=== PATIENT | female | born 1985 | race African-American/Black ===

== ENCOUNTER 2017-02-27 18:04 | Observation (INO) | payer OTHER ==
[2017-02-27 18:53] LABS: #Basophils 0.1 thou/uL (0.0-0.2); #Eosinphils 0.1 thou/uL (0.0-0.7); #Lymphocytes 2.6 thou/uL (1.20-3.40); #Monocytes 0.6 thou/uL (0.11-0.59); #Neutrophils 6.7 thou/uL (1.40-6.50); %Basophils 0.7 % (0.0-1.0); %Eosinophils 1.4 % (0.0-10.0); %Monocytes 5.8 % (0.0-10.0); %Neutrophils 66.2 % (42.0-75.0); Hemoglobin 11.4 g/dL (12.0-16.0); Mean Corpuscular HGB CONC 31.1 g/dL (32.0-36.0); Mean Corpuscular Hemoglobin 24.8 pg (27.0-31.0); Mean Corpuscular Volume 79.8 fl (81.0-99.0); Mean Platelet Volume 10.1 fL (7.4-10.4); Platelet Count 208 thou/uL (130-400); RBC Distribution Width 13.5 % (11.5-14.5); White Blood Cell (WBC) Count 10.2 thou/uL (4.8-10.8)
[2017-02-27] MEDS ORDERED: Ondansetron ODT 4 MG TAB ONE (18:57)
[2017-02-27] MEDS ORDERED: Acetaminophen 500 MG TAB ONE (18:57)
[2017-02-27 19:14] LABS: ALT (SGPT) 9 U/L (8-55); AST (SGOT) 12 U/L (5-34); Alkaline Phosphatase 74 U/L (40-150); Anion Gap 9 mmol/L (10-20); BUN (Urea Nitrogen) 10 mg/dL (7.0-18.7); Bilirubin, Total 0.3 mg/dL (0.2-1.2); CK (CPK) 205 U/L (29-168); Calc. Creatinine Clearance 0 mL/min (70-130); Calcium 9.6 mg/dL (7.8-10.44); Carbon Dioxide 28 mmol/L (22-29); Chloride 107 mmol/L (98-107); Estimated GFR-MDRD Greater than 90; Globulin 4.1 g/dL (2.4-3.5); Glucose 87 mg/dL (70-105); Protein, Total 8.1 g/dL (6.0-8.3); Sodium 140 mmol/L (136-145)
[2017-02-27 19:18] LABS: CKMB 1.4 ng/mL (0-6.6); Troponin I 0.015 ng/mL (< 0.028)
--- NOTE | 2017-02-27 19:21 | CT ---
CT BRAIN WITHOUT CONTRAST: History: Headache. Comparison: 2012 FINDINGS: No acute territory infarct of hemorrhage. No midline shift or mass effect. Ventricular size and CSF s paces are normal. Paranasal sinuses and mastoids are clear. IMPRESSION: No acute intracranial abnormality. No significant change. POS: [facility]
[2017-02-27 19:25] LABS: BHCG - Serum Negative (NEGATIVE); Pregs Control Background? CLEAR/WHITE (CLR/WHITE); Pregs Control Bar Appear? YES (CONTROL BAR)
[2017-02-27] MEDS ORDERED: Ibuprofen 600 MG TAB PO PRN (20:29)
[2017-02-27] MEDS ORDERED: Hydrochlorothiazide 25 MG TAB PO SCH (20:30)
[2017-02-27] MEDS ORDERED: Ondansetron HCl/PF 4 MG/2 ML Vial IVP PRN (21:18)
[2017-02-27] MEDS ORDERED: Acetaminophen 325 MG TAB PO PRN (21:18)
[2017-02-27] MEDS ORDERED: Bisacodyl 5 MG TAB PO PRN (21:18)
[2017-02-27] MEDS ORDERED: Ondansetron ODT 4 MG TAB PO PRN (21:18)
[2017-02-27] MEDS ORDERED: Acetaminophen 650 MG Suppository PR PRN (21:18)
[2017-02-27] MEDS ORDERED: cloNIDine 0.1 MG TAB PO PRN (21:18)
[2017-02-27] MEDS ORDERED: Famotidine 20 MG TAB PO SCH (21:30)
[2017-02-27 22:54] VITALS: BMI 53.8
[2017-02-28 01:30] LABS: Troponin I 0.017 ng/mL (< 0.028)
[2017-02-28 05:27] LABS: #Eosinphils 0.1 thou/uL (0.0-0.7); #Monocytes 0.5 thou/uL (0.11-0.59); #Neutrophils 4.9 thou/uL (1.40-6.50); %Basophils 0.6 % (0.0-1.0); %Eosinophils 1.8 % (0.0-10.0); %Monocytes 7.1 % (0.0-10.0); %Neutrophils 64.6 % (42.0-75.0); Hemoglobin 11.2 g/dL (12.0-16.0); Mean Corpuscular HGB CONC 30.9 g/dL (32.0-36.0); Mean Corpuscular Hemoglobin 24.6 pg (27.0-31.0); Mean Corpuscular Volume 79.6 fl (81.0-99.0); Platelet Count 179 thou/uL (130-400); RBC Distribution Width 13.7 % (11.5-14.5); Red Blood Cell (RBC) Count 4.55 mill/uL (4.20-5.40); White Blood Cell (WBC) Count 7.6 thou/uL (4.8-10.8)
[2017-02-28 05:29] LABS: Anion Gap 12 mmol/L (10-20); BUN (Urea Nitrogen) 9 mg/dL (7.0-18.7); Calc. Creatinine Clearance 247 mL/min (70-130); Calcium 9.5 mg/dL (7.8-10.44); Carbon Dioxide 23 mmol/L (22-29); Chloride 103 mmol/L (98-107); Estimated GFR-MDRD Greater than 90; Glucose 125 mg/dL (70-105); Potassium 3.4 mmol/L (3.5-5.1); Sodium 135 mmol/L (136-145)
--- NOTE | 2017-02-28 05:34 | HP ---
PRIMARY CARE PHYSICIAN: Colton Bello M.D. CHIEF COMPLAINT: Syncope. HISTORY OF PRESENT ILLNESS: This is a 31-year-old -[place] female with a known history of se lucrecia hypertension who has not taken her medicines for the last couple of days due to forgetfulness. She has been under stress for the last week as her /boyfriend's old girlfriend recently a nd they had been dealing with the over the last week, but not on any specific worsened stress today and she was driving with her 's and suddenly felt bad, felt warm all over and that is t he last thing she remembers. reports that she started to report feeling bad and then pulled into the wrong way [address] and then pulled over toward a parking lot, but only got detention into the entry before she stopped and parked the car. He got out of the car when around to her side and she open the door, stepped out and then fell to the ground, unconscious. She was only unconscious fo r few seconds. When she woke up, she started shivering all over and it a little bit confused, but on ly for a minute or two and then she was back to her normal state of health. She remembers waking up and feeling very nauseated, no vomiting and having a frontal headache pressure sensation. They givens d EMS, the EMS found that her blood pressure was greater than 200/125. She was given a nitro paste a nd brought into the emergency room. By the time, she was arrived to the emergency room, her blood pr essure was much improved. Original blood pressure 160/92, now down to 140/79. She has received Tyle nol in the emergency room here along with Zofran with some resolution of her nausea and some improvem ent in her headache. PAST MEDICAL HISTORY: 1. Severe hypertension that spikes frequently. 2. Previous unknown liver disease treated by GI at [facility] that resolved over several months with steroid therapy, now it is back to normal. PAST SURGICAL HISTORY: 1. Tubal ligation. 2. Laparoscopic cholecystectomy. 3. section. 4. Hernia repair. SOCIAL HISTORY: No tobacco or illicit drug use. She drinks socially, which is rarely. FAMILY HISTORY: Coronary artery disease, hypertension, diabetes, and breast cancer. The patient tino es with her , Aidan Mejía, who is present with her in the emergency room. ALLERGIES: No known drug allergies. MEDICATIONS: Benicar HCT 40/25 mg 1 tablet daily. REVIEW OF SYSTEMS: Constitutional: No fevers, no chills. Eyes: No double vision or blurred vision . ENT: No congestion, drainage or sore throat. Cardiovascular: Syncope as per HPI. No chest pain , no palpitations or racing heart. Pulmonary: No coughing, wheezing or shortness of breath. Gastro intestinal: Nausea as per HPI, now resolved. No vomiting, no abdominal pain, no diarrhea or constip ation. Genitourinary: No dysuria or hematuria, no loss of bowel or bladder incontinence during epis ode. Musculoskeletal: The patient has a chronic problem with her left kneecap where it is slides a little bit, making this little bit weaker. When she fell, she hit her right knee and it is still ten lupe in the anterior aspect, but she has been able to ambulate. No other musculoskeletal complaints. Skin: No rashes or other lesions noted. Neurologic: No numbness, tingling or focal weakness. No dizziness or vertigo. PHYSICAL EXAMINATION: VITAL SIGNS: Blood pressure 140/79, pulse 92, respirations 20, temperature 98.8, O2 sat 96% on room air. Pain down from 10/10 to 7/10 currently. GENERAL: This is a well-developed, obese -[place] female in no apparent distress. HEENT: Pupils equal, round, and reactive to light. Extraocular movements intact. No nystagmus. Or opharynx clear without lesions, erythema or exudate. NECK: Supple, no lymphadenopathy, no thyroid nodules or enlargement, no tenderness, no JVD. HEART: Regular rate and rhythm, no murmurs, rubs or gallops. LUNGS: Clear to auscultation bilaterally, no wheezes, crackles or rhonchi. ABDOMEN: Soft, nontender to palpation, normoactive bowel sounds, no hepatosplenomegaly or other mass es. EXTREMITIES: No clubbing, cyanosis or edema. She has some tenderness to the anterior within the kne e cap on her right knee, but has no deformity, has full range of motion of the knee, just pain with m ovement. SKIN: No rashes or other lesions noted. NEUROLOGIC: Cranial nerves II-X intact and equal bilaterally. No facial droop. Deep tendon reflexe s 2+ in all extremities. Strength is 5/5 in all extremities. Her HINTS exam was normal and she has normal cerebellar testing. LABORATORY DATA: Complete metabolic panel is grossly within normal limits. Creatinine kinase of 205 . Cardiac marker set negative x1. CBC within normal limits except for MCV of 79 and hemoglobin of [address] of the brain done in the emergency room shows no acute intracranial abnormality. No evidenc e of infarction or hemorrhage. EKG: I did review the EKG done in the emergency room, it does show n ormal sinus rhythm with some left axis deviation and possible left ventricular hypertrophy. No arrhy thmias, no ST segment changes. ASSESSMENT AND PLAN: 1. Syncopal episode, likely neurocardiogenic syncope given the feeling of warmth prior to the syncop al episode and the quick recovery. We will observe the patient in the hospital overnight, CT of the brain is negative and her exam was negative for any evidence of stroke. There is also a possibility that this is a direct toxic effect of her severe hypertension. Although, these spike in blood pressu re may be related to recovery from syncopal episode. 2. Hypertensive emergency, now resolved with nitro paste to the anterior chest wall. We will give t he patient to her home dose of Benicar HCT. We will observe her blood pressure overnight. We will g coleman p.r.n. clonidine as needed for severe elevations of blood pressures. We will keep patient on the service crew leader overnight as well. If patient's blood pressure remains decently controlled, not s everely elevated overnight and she does not have any more presyncopal or syncopal episodes and is amb ulating well in the morning she will be able to go home at that time. 3. Gastrointestinal prophylaxis. The patient is on Pepcid twice a day. 4. Deep venous thrombosis prophylaxis. The patient is on sequential compression devices in bed and we will have her ambulate. 5. Code status. I did discuss with the patient, she said that she is a FULL CODE. Should she will be incapacitated, she states that her would be her medical power of associate attorney, his name is Tuan Mejía.
[2017-02-28] MEDS ORDERED: Famotidine 20 MG TAB PO SCH (09:00)
[2017-02-28] MEDS ORDERED: Hydrochlorothiazide 25 MG TAB PO SCH (10:00)
[2017-02-28] MEDS ORDERED: Amlodipine 10 MG TAB PO SCH (12:30)
[2017-02-28] MEDS ORDERED: Carvedilol 25 MG TAB PO SCH (14:00)
[2017-02-28 17:28] VITALS: BP 178/114; TEMP 99.1
[2017-03-01] MEDS ORDERED: Hydrochlorothiazide 25 MG TAB PO SCH (09:00)
== END 2017-02-28 18:32 | disposition home or self-care (01) ==
LOC: ERS 18:04 → 2SW 19:45
PROVIDERS: ADMIT Emergency Medicine; ATTEND Emergency Medicine
DX: R55 Syncope and collapse (principal); I16.1 Hypertensive emergency; I10 Essential (primary) hypertension; Z79.899 Other long term (current) drug therapy; Z98.51 Tubal ligation status; Z82.49 Family history of ischemic heart disease and other diseases of the circulatory system; Z83.3 Family history of diabetes mellitus; Z80.3 Family history of malignant neoplasm of breast; Z90.49 Acquired absence of other specified parts of digestive tract; Z98.890 Other specified postprocedural states
CPT/HCPCS: 36415; 70450; 80048; 80053; 82553; 84484; 84703; 85025; 93005; 94760; G0378; Q0162

== ENCOUNTER 2019-08-26 10:11 | Emergency (ER) | payer OTHER, SELFPAY ==
[2019-08-27 12:20] LABS: SARS-CoV-2 MS2 Positive; SARS-CoV-2 N Gene Positive; SARS-CoV-2 S Gene Positive; SARS-CoV-2 orf1ab Positive
== END 2019-08-26 10:40 | disposition home or self-care (01) ==
LOC: MERGE 10:11 → ERS 10:11
DX: U07.1 COVID-19 (principal)
CPT/HCPCS: 87635; U0003

== ENCOUNTER 2019-09-09 10:37 | Emergency (ER) | payer OTHER ==
[2019-09-10 15:22] LABS: SARS-CoV-2 MS2 Positive; SARS-CoV-2 N Gene Positive; SARS-CoV-2 S Gene Negative; SARS-CoV-2 orf1ab Positive
== END 2019-09-09 11:51 | disposition home or self-care (01) ==
LOC: ERS 10:37
DX: Z20.828 Contact with and (suspected) exposure to other viral communicable diseases (principal); I10 Essential (primary) hypertension
CPT/HCPCS: 87635; 99283; U0003

== ENCOUNTER 2022-11-27 00:21 | Inpatient (IN) | payer OTHER, SELFPAY ==
[2022-11-27 00:59] LABS: #Eosinphils 0.2 thou/uL (0.0-0.7); #Monocytes 0.6 thou/uL (0.11-0.59); #Neutrophils 6.2 thou/uL (1.40-6.50); %Basophils 0.3 % (0.0-1.0); %Eosinophils 2.3 % (0.0-10.0); %Lymphocytes 22.4 % (21.0-51.0); %Monocytes 6.5 % (0.0-10.0); %Neutrophils 68.1 % (42.0-75.0); Hematocrit 37.6 % (36.0-47.0); Hemoglobin 11.5 g/dL (12.0-16.0); Mean Corpuscular HGB CONC 30.6 g/dL (32.0-36.0); Mean Corpuscular Hemoglobin 25.5 pg (27.0-31.0); Mean Corpuscular Volume 83.4 fl (78.0-98.0); Mean Platelet Volume 11.3 fL (7.4-10.4); Platelet Count 207 10x3/uL (130-400); RBC Distribution Width 14.3 % (11.5-14.5); Red Blood Cell (RBC) Count 4.51 mill/uL (4.20-5.40); White Blood Cell (WBC) Count 9.2 10x3/uL (4.8-10.8)
[2022-11-27 01:27] LABS: ALT (SGPT) 8 U/L (8-55); AST (SGOT) 13 U/L (5-34); Albumin 3.7 g/dL (3.5-5.0); Alkaline Phosphatase 73 U/L (40-110); Anion Gap 14 mmol/L (10-20); BUN (Urea Nitrogen) 16 mg/dL (7.0-18.7); Bilirubin, Total 0.5 mg/dL (0.2-1.2); Calc. Creatinine Clearance 0 mL/min (70-130); Calcium 8.8 mg/dL (7.8-10.44); Carbon Dioxide 24 mmol/L (22-29); Chloride 104 mmol/L (98-107); Estimated GFR 74; Globulin 4.1 g/dL (2.4-3.5); Glucose 118 mg/dL (70-105); Lipase 24 U/L (8-78); Potassium 3.6 mmol/L (3.5-5.1); Protein, Total 7.8 g/dL (6.0-8.3); Sodium 138 mmol/L (136-145)
[2022-11-27] MEDS ORDERED: Metoprolol Tartrate 25 MG TAB ONE (01:29)
[2022-11-27 01:55] LABS: Magnesium 2.2 mg/dL (1.6-2.6); Troponin I 0.415 ng/mL (< 0.028)
[2022-11-27 01:57] LABS: BHCG - Serum Negative (NEGATIVE); Pregs Control Background? CLEAR/WHITE (CLR/WHITE); Pregs Control Bar Appear? YES (CONTROL BAR)
[2022-11-27] MEDS ORDERED: Aspirin Chewable 81 MG TAB ONE (02:45)
[2022-11-27] MEDS ORDERED: Nitroglycerin 0.4 MG TAB 1 EACH ONE (02:45)
[2022-11-27] MEDS ORDERED: Ondansetron PF 4 MG/2 ML Vial IVP PRN (03:23)
[2022-11-27] MEDS ORDERED: Calcium Carbonate 500 MG ChewTAB PO PRN (03:23)
[2022-11-27] MEDS ORDERED: Ondansetron ODT 4 MG TAB PO PRN (03:23)
[2022-11-27] MEDS ORDERED: Carvedilol 25 MG TAB PO SCH ×2 (03:45→08:00)
[2022-11-27] MEDS ORDERED: Amlodipine 5 MG TAB PO SCH (03:45)
[2022-11-27 04:10] LABS: Troponin I 0.426 ng/mL (< 0.028)
[2022-11-27 04:57] VITALS: BMI 56.6
[2022-11-27] MEDS: Acetaminophen 325 MG TAB PO PRN (05:34)
[2022-11-27 05:37] LABS: #Eosinphils 0.1 thou/uL (0.0-0.7); #Monocytes 0.6 thou/uL (0.11-0.59); #Neutrophils 5.7 thou/uL (1.40-6.50); %Basophils 0.3 % (0.0-1.0); %Eosinophils 1.6 % (0.0-10.0); %Lymphocytes 25.5 % (21.0-51.0); %Neutrophils 65.1 % (42.0-75.0); Hematocrit 35.3 % (36.0-47.0); Hemoglobin 10.8 g/dL (12.0-16.0); Mean Corpuscular HGB CONC 30.6 g/dL (32.0-36.0); Mean Corpuscular Hemoglobin 25.7 pg (27.0-31.0); Mean Corpuscular Volume 83.8 fl (78.0-98.0); Mean Platelet Volume 12.1 fL (7.4-10.4); Platelet Count 210 10x3/uL (130-400); RBC Distribution Width 14.2 % (11.5-14.5); Red Blood Cell (RBC) Count 4.21 mill/uL (4.20-5.40); White Blood Cell (WBC) Count 8.7 10x3/uL (4.8-10.8)
[2022-11-27 05:45] LABS: Hemoglobin A1c 5.5 % (4.0-6.0)
[2022-11-27 06:07] LABS: Anion Gap 12 mmol/L (10-20); BUN (Urea Nitrogen) 15 mg/dL (7.0-18.7); Calc. Creatinine Clearance 204 mL/min (70-130); Calcium 8.7 mg/dL (7.8-10.44); Carbon Dioxide 25 mmol/L (22-29); Chloride 105 mmol/L (98-107); Estimated GFR 82; Glucose 110 mg/dL (70-105); Potassium 3.5 mmol/L (3.5-5.1); Sodium 138 mmol/L (136-145)
[2022-11-27 06:09] LABS: Cardiac Risk 5.6 (Less than 4.5)
[2022-11-27 06:19] LABS: Critical Call Chem Troponin I RESULT DECREASING; Troponin I 0.383 ng/mL (< 0.028)
[2022-11-27] MEDS ORDERED: Hydrochlorothiazide 25 MG TAB PO SCH (09:00)
[2022-11-27] MEDS ORDERED: Non-Formulary Item 1 EACH (Losartan Potassium [Cozaar] 50 MG Tab) PO SCH (09:00)
[2022-11-27] MEDS: Aspirin 81 mg Enteric Coated Tablet PO SCH (09:17)
[2022-11-27] MEDS: Amlodipine 5 MG TAB PO SCH (09:17)
[2022-11-27] MEDS ORDERED: Regadenoson 0.4 MG/5 ML SYRINGE ONE (10:05)
[2022-11-27] MEDS: Losartan/Hydrochlorothiazide 100 mg/25 mg Tablet PO SCH (13:44)
[2022-11-27] MEDS: Atorvastatin Calcium 40 MG TAB PO SCH (21:30)
[2022-11-28] MEDS: Acetaminophen 325 MG TAB PO PRN (00:19)
[2022-11-28] MEDS: Aspirin 81 mg Enteric Coated Tablet PO SCH (08:25)
[2022-11-28] MEDS: Amlodipine 5 MG TAB PO SCH (08:25)
[2022-11-28] MEDS: Losartan/Hydrochlorothiazide 100 mg/25 mg Tablet PO SCH (08:25)
[2022-11-28] MEDS ORDERED: Carvedilol 25 MG TAB PO SCH ×3 (11:45→21:00)
[2022-11-28] MEDS ORDERED: hydrALAZINE 20 MG/ML VIAL SLOW IVP PRN (12:11)
[2022-11-28] MEDS: Atorvastatin Calcium 40 MG TAB PO SCH (20:40)
[2022-11-29] MEDS: Acetaminophen 325 MG TAB PO PRN (06:14)
[2022-11-29] MEDS ORDERED: Sodium Chloride 0.9% 1,000 ML IV SCH ×2 (07:00→14:00)
[2022-11-29] MEDS ORDERED: Communication Order-Pharmacy FS SCH (07:00)
[2022-11-29] MEDS ORDERED: hydrALAZINE 20 MG/ML VIAL SLOW IVP PRN (07:46)
[2022-11-29] MEDS: Carvedilol 25 MG TAB PO SCH ×2 (08:04→17:38)
[2022-11-29] MEDS: Losartan/Hydrochlorothiazide 100 mg/25 mg Tablet PO SCH (08:04)
[2022-11-29] MEDS: Aspirin 81 mg Enteric Coated Tablet PO SCH (08:04)
[2022-11-29] MEDS ORDERED: Amlodipine 10 MG TAB PO SCH (09:00)
[2022-11-29] MEDS ORDERED: Lidocaine 1% PF 5 ML VIAL ONE ×3 (11:57→13:09)
[2022-11-29] MEDS ORDERED: Heparin 10,000 UNITS/ 10 ML VIAL ONE (11:57)
[2022-11-29] MEDS ORDERED: Nitroglycerin 50 MG/250 ML BOT 250 ML ONE (11:57)
[2022-11-29] MEDS ORDERED: Verapamil 5 MG/2 ML VIAL ONE (11:57)
[2022-11-29] MEDS ORDERED: fentaNYL 50 mcg/mL 1 mL Vial ONE (12:40)
[2022-11-29] MEDS ORDERED: Midazolam HCl 2 mg/2 ml Vial ONE (12:40)
[2022-11-29] MEDS ORDERED: hydrALAZINE 20 MG/ML VIAL ONE (13:33)
[2022-11-29] MEDS ORDERED: Nitroglycerin 0.4 MG TAB (25 Tab Bottle) SL PRN (13:47)
[2022-11-29] MEDS ORDERED: Acetaminophen/Codeine 30-300mg Tablet PO PRN ×2 (13:47)
[2022-11-29] MEDS ORDERED: Sodium Chloride 0.9% 200 ML IV PRN (13:47)
[2022-11-29 16:55] VITALS: BP 155/81; TEMP 98.3
== END 2022-11-29 18:38 | disposition home or self-care (01) | DRG 281 ==
LOC: ERS 00:21 → 2NO 03:05 → OBSVTOIN 11-28 11:48
PROVIDERS: ADMIT Family Medicine; ATTEND Family Medicine
PROC: 4A023N7 Measurement of Cardiac Sampling and Pressure, Left Heart, Percutaneous Approach (ICD-10-PCS; principal; 2022-11-29)
PROC: B2151ZZ Fluoroscopy of Left Heart using Low Osmolar Contrast (ICD-10-PCS; 2022-11-29)
PROC: B2111ZZ Fluoroscopy of Multiple Coronary Arteries using Low Osmolar Contrast (ICD-10-PCS; 2022-11-29)
DX: I16.1 Hypertensive emergency (principal); I21.A1 Myocardial infarction type 2; Z68.43 Body mass index [BMI] 50.0-59.9, adult; Z82.49 Family history of ischemic heart disease and other diseases of the circulatory system; Z79.899 Other long term (current) drug therapy; N18.2 Chronic kidney disease, stage 2 (mild); Z90.49 Acquired absence of other specified parts of digestive tract; Z98.890 Other specified postprocedural states; E66.01 Morbid (severe) obesity due to excess calories; Z91.148 Patient's other noncompliance with medication regimen for other reason; E78.5 Hyperlipidemia, unspecified; R73.03 Prediabetes; I12.9 Hypertensive chronic kidney disease with stage 1 through stage 4 chronic kidney disease, or unspecified chronic kidney disease; Z79.82 Long term (current) use of aspirin; I45.81 Long QT syndrome
CPT/HCPCS: 36140; 36415; 71045; 78452; 80053; 80061; 83036; 83690; 83735; 83880; 84443; 84484; 84703; 85025; 93005; 93017; 93458; 99152; 99153; A9500; C1760; C1769; C1894; G0378; J0360; J1644; J2250; J2785; J3010; J7050

== ENCOUNTER 2022-12-04 13:45 | Emergency (ER) | payer OTHER, SELFPAY ==
[~2022-12-04 13:45] MED LIST: Iopamidol-370 76% 500 ML MDV (1 ML CHARGE) ONE
[2022-12-04] MEDS ORDERED: Ketorolac Tromethamine 30 MG/ML VIAL ONE (14:20)
[2022-12-04 14:51] LABS: #Eosinphils 0.2 thou/uL (0.0-0.7); #Monocytes 0.5 thou/uL (0.11-0.59); #Neutrophils 5.3 thou/uL (1.40-6.50); %Basophils 0.3 % (0.0-1.0); %Eosinophils 2.3 % (0.0-10.0); %Lymphocytes 19.3 % (21.0-51.0); %Monocytes 6.2 % (0.0-10.0); %Neutrophils 71.5 % (42.0-75.0); Hematocrit 38.5 % (36.0-47.0); Hemoglobin 11.6 g/dL (12.0-16.0); Mean Corpuscular HGB CONC 30.1 g/dL (32.0-36.0); Mean Corpuscular Hemoglobin 25.2 pg (27.0-31.0); Mean Corpuscular Volume 83.5 fl (78.0-98.0); Mean Platelet Volume 12.2 fL (7.4-10.4); Platelet Count 248 10x3/uL (130-400); Red Blood Cell (RBC) Count 4.61 mill/uL (4.20-5.40); White Blood Cell (WBC) Count 7.5 10x3/uL (4.8-10.8)
[2022-12-04 15:15] LABS: ALT (SGPT) 11 U/L (8-55); AST (SGOT) 13 U/L (5-34); Albumin 4.4 g/dL (3.5-5.0); Alkaline Phosphatase 75 U/L (40-110); Anion Gap 11 mmol/L (10-20); BUN (Urea Nitrogen) 17 mg/dL (7.0-18.7); Bilirubin, Total 0.6 mg/dL (0.2-1.2); Calc. Creatinine Clearance 0 mL/min (70-130); Calcium 9.6 mg/dL (7.8-10.44); Carbon Dioxide 28 mmol/L (22-29); Chloride 102 mmol/L (98-107); Estimated GFR 74; Glucose 94 mg/dL (70-105); Lipase 20 U/L (8-78); Potassium 3.4 mmol/L (3.5-5.1); Protein, Total 8.4 g/dL (6.0-8.3); Sodium 138 mmol/L (136-145)
== END 2022-12-04 16:20 | disposition home or self-care (01) ==
LOC: ERS 13:45
DX: S06.0X0A Concussion without loss of consciousness, initial encounter (principal); M62.838 Other muscle spasm; I10 Essential (primary) hypertension; E78.00 Pure hypercholesterolemia, unspecified; Z79.899 Other long term (current) drug therapy; V89.2XXA Person injured in unspecified motor-vehicle accident, traffic, initial encounter
CPT/HCPCS: 70450; 71045; 72125; 74177; 80053; 83690; 85025; 93005; 96374; J1885; Q9967